=== PATIENT | female | born 1940 | race Caucasian/White ===

== ENCOUNTER 2020-11-05 10:34 | Emergency (ER) | payer MEDICARE, OTHER ==
[~2020-11-05] VITALS: Ht 152.4 cm; Wt 62.1 kg
[2020-11-05 10:44] VITALS: BP 131/72
--- NOTE | 2020-11-05 10:54 | NUR ---
PT AMBULATED TO BED 7.
--- NOTE | 2020-11-05 10:55 | NUR ---
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
[2020-11-05] MEDS ORDERED: HYDROcodone/APAP 5/325 MG 1 TAB TAB PO ONE (11:05)
--- NOTE | 2020-11-05 11:10 | NUR ---
Dr. Hahn with pt for MSE.
[2020-11-05 12:14] VITALS: BP 128/69
--- NOTE | 2020-11-05 12:14 | NUR ---
pt in bed in semi fowlers position. aao x 4. does not appear to be in distress at this time. VSS.
[2020-11-05] MEDS ORDERED: ACET-9527 PO (12:21)
[2020-11-05] MEDS ORDERED: CEPH250C16 PO (12:24)
--- NOTE | 2020-11-05 12:39 | NUR ---
Patient discharged with v/s stable. Written and verbal after care instructions given and explained. Patient alert, oriented and verbalized understanding of instructions. Ambulatory with steady gait. All questions addressed prior to discharge. ID band removed. Patient advised to follow up with PMD. Rx of norco, keflex given. Patient educated on indication of medication including possible reaction and side effects. Opportunity to ask questions provided and answered.
[2020-11-05 13:19] LABS: APPEARANCE,URINE CLEAR (CLEAR); BILIRUBIN,URINE NEGATIVE (NEGATIVE); BLOOD, URINE TRACE-I (NEGATIVE); COLOR,URINE YELLOW (YELLOW); LEUKOCYTE ESTERASE ,URINE TRACE (NEGATIVE); UGLUCOSE NEGATIVE (NEGATIVE)
[2020-11-05 13:48] LABS: NITRITE, URINE POSITIVE (NEGATIVE); RBC,URINE 0-5 /HPF (0-5); WBC,URINE 0-5 /HPF (0-5)
== END 2020-11-05 12:39 | disposition home or self-care (01) ==
LOC: MED 10:34
DX: S20.211A Contusion of right front wall of thorax, initial encounter (principal); N39.0 Urinary tract infection, site not specified; R03.0 Elevated blood-pressure reading, without diagnosis of hypertension; Z79.899 Other long term (current) drug therapy; W07.XXXA Fall from chair, initial encounter; Y93.89 Activity, other specified; Y92.89 Other specified places as the place of occurrence of the external cause; Y99.8 Other external cause status
CPT/HCPCS: 71101; 81001; 99284

== ENCOUNTER 2020-12-23 19:30 | Emergency (ER) | payer MEDICARE, OTHER ==
[~2020-12-23] VITALS: Ht 152.4 cm; Wt 64.9 kg
[~2020-12-23 19:30] MED LIST: ACET-9527 PO; CEPH250C16 PO
[2020-12-23 19:37] VITALS: BP 124/84
--- NOTE | 2020-12-23 19:37 | NUR ---
TO BED AMBULATORY
--- NOTE | 2020-12-23 19:45 | NUR ---
RECEIVED IN BED 7 AFTER OBTAINING UA WITH C/O DIZZINESS SINCE YESTERDAY. 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
--- NOTE | 2020-12-23 20:01 | NUR ---
DR. KENT AT BEDSIDE FOR EXAM
[2020-12-23] MEDS ORDERED: CIPR500T4 PO (20:07)
[2020-12-23 20:30] VITALS: BP 124/84
== END 2020-12-23 20:30 | disposition home or self-care (01) ==
LOC: MED 19:30
DX: N39.0 Urinary tract infection, site not specified (principal); R42 Dizziness and giddiness; E11.9 Type 2 diabetes mellitus without complications; Z90.49 Acquired absence of other specified parts of digestive tract; Z79.899 Other long term (current) drug therapy
CPT/HCPCS: 81002; 99283

== ENCOUNTER 2021-07-28 15:45 | Emergency (ER) | payer MEDICARE, OTHER ==
[~2021-07-28] VITALS: Ht 152.4 cm; Wt 64.9 kg
[~2021-07-28 15:45] MED LIST changes: +CIPR500T4 PO
[2021-07-28 15:54] VITALS: BP 164/79
--- NOTE | 2021-07-28 16:32 | NUR ---
80 Y/O F C/O DIZZINES, NAUSEA AND LOP BP FOR 2 WKS AFTER SHE GOT HER FLU VACINE. JOHN.
--- NOTE | 2021-07-28 16:32 | NUR ---
Carlos valladares in EDM - 07/28/21 at 1921 by [email or web address] 1 Y/O F C/O DIZZINES, NAUSEA AND LOP BP FOR 2 WKS AFTER SHE GOT HER FLU VACINE. PEDROA.
--- NOTE | 2021-07-28 16:40 | NUR ---
DR SCHUMACHER AT BEDSIDE.
--- NOTE | 2021-07-28 16:50 | NUR ---
LAB AT BEDSIDE.
--- NOTE | 2021-07-28 16:57 | NUR ---
EKG AT BEDSIDE.
[2021-07-28 17:00] LABS: BASOPHILS % (AUTO) 0.6 % (0.0-2.0); EOSINOPHILS # (AUTO) 0.1 K/uL (0-0.4); EOSINOPHILS % (AUTO) 1.9 % (0.0-4.0); HEMATOCRIT 36.5 % (36-48); HEMOGLOBIN 12.3 g/dL (12.0-16.0); LYMPHOCYTES # (AUTO) 2.5 K/uL (2.5-16.5); LYMPHOCYTES % (AUTO) 34.4 % (20.5-51.1); MEAN CORPUSCULAR HEMOGLOBIN 29 pg (27-31); MEAN CORPUSCULAR HGB CONC 34 g/dL (33-37); MEAN CORPUSCULAR VOLUME 86.9 fL (80-94); MONOCYTES # (AUTO) 0.7 K/uL (0.8-1.0); MONOCYTES % (AUTO) 9.7 % (1.7-9.3); NEUTROPHILS # (AUTO) 3.8 K/uL (1.8-7.7); NEUTROPHILS % (AUTO) 53.4 % (42.2-75.2); PLATELET COUNT (AUTO) 203 K/uL (140-450); RED BLOOD CELL COUNT(AUTO) 4.19 MIL/uL (4.20-5.40); RED CELL DISTRIBUTION WIDTH 13.8 % (11.6-13.7); WHITE BLOOD COUNT (AUTO) 7.2 K/uL (4.8-10.8)
[2021-07-28 17:00] LABS: APPEARANCE,URINE CLEAR (CLEAR); BILIRUBIN,URINE NEGATIVE (NEGATIVE); BLOOD, URINE 1+ (NEGATIVE); COLOR,URINE YELLOW (YELLOW); LEUKOCYTE ESTERASE ,URINE NEGATIVE (NEGATIVE); NITRITE, URINE NEGATIVE (NEGATIVE); UGLUCOSE NEGATIVE (NEGATIVE)
[2021-07-28 17:26] LABS: RBC,URINE 0-5 /HPF (0-5); WBC,URINE NONE SEEN /HPF (0-5)
[2021-07-28 17:35] LABS: TOTAL BILIRUBIN 0.2 mg/dL (0.0-1.0)
[2021-07-28 17:48] LABS: ALBUMIN 3.6 g/dL (3.4-5.0); ANION GAP 13.6 (8-16); ASPARTATE AMINOTRANSFERASE 18 U/L (15-37); CARBON DIOXIDE 27.5 mmol/L (21-32); CHLORIDE 106 mmol/L (98-107); CREATININE 0.7 mg/dL (0.6-1.3); GLUCOSE 96 mg/dL (74-106); POTASSIUM 4.1 mmol/L (3.5-5.1); SODIUM SERUM 143 mmol/L (136-145); UREA NITROGEN, BLOOD 15 mg/dL (7-18)
--- NOTE | 2021-07-28 18:48 | NUR ---
PATIENT TO CT SCAN.
--- NOTE | 2021-07-28 19:05 | NUR ---
BACK FROM CT.
--- NOTE | 2021-07-28 19:20 | NUR ---
RECIEVED REPORT FROM EVELIA CRESPO.
--- NOTE | 2021-07-28 19:21 | NUR ---
REPORT GIVEN TO NEVA CRESPO.
--- NOTE | 2021-07-28 19:33 | NUR ---
HELPED PT AMBULATE TO RESTROOM.
[2021-07-28] MEDS ORDERED: ACETAMINOPHEN 325 MG TAB PO ONE (19:45)
[2021-07-28] MEDS ORDERED: KETOROLAC 15 MG/ML VIAL IVP ONE (19:45)
[2021-07-28] MEDS ORDERED: KETOROLAC 30 MG/ML VIAL ONE (19:52)
[2021-07-28] MEDS ORDERED: ACET-10509 PO (21:03)
[2021-07-28 21:25] VITALS: BP 158/77
--- NOTE | 2021-07-28 21:25 | NUR ---
Patient discharged with v/s stable. Written and verbal after care instructions given and explained. Patient verbalized understanding. Ambulatory with steady gait. All questions addressed prior to discharge. Advised to follow up with PMD.
--- NOTE | 2021-07-28 21:38 | NUR ---
The patient's care was reviewed and supervised by Erma West RN.
== END 2021-07-28 21:25 | disposition home or self-care (01) ==
LOC: MED 15:45
DX: R51.9 Headache, unspecified (principal); I10 Essential (primary) hypertension; R42 Dizziness and giddiness; E11.9 Type 2 diabetes mellitus without complications; Z79.899 Other long term (current) drug therapy
CPT/HCPCS: 36415; 70450; 70496; 70498; 80053; 81001; 84484; 85025; 93005; 96374; 99285; J1885; Q9967

== ENCOUNTER 2022-09-22 11:56 | Emergency (ER) | payer OTHER ==
[~2022-09-22] VITALS: Ht 147.3 cm; Wt 62.3 kg
[~2022-09-22 11:56] MED LIST changes: +ACET-10509 PO
[2022-09-22 12:25] VITALS: BP 147/60
--- NOTE | 2022-09-22 12:29 | NUR ---
PATIENT PRESENTS TO ED WITH ANXIETY . PT STATES IT FELT WORSE TODAY . DENIES N/V/D; SKIN IS PINK/WARM/DRY; AAOX4 WITH EVEN AND STEADY GAIT; LUNGS CLEAR BL; HR EVEN AND REGULAR; PT DENIES ANY FEVER, CP, SOB, OR COUGH AT THIS TIME; PATIENT STATES PAIN OF 0/10 AT THIS TIME; VSS; PATIENT POSITIONED FOR COMFORT; HOB ELEVATED; BEDRAILS UP X2; BED DOWN. ER MD MADE AWARE OF PT STATUS.
--- NOTE | 2022-09-22 14:00 | NUR ---
PATIENT [place] IN [place], NO S/S OF ACUTE DISTRESS. WILL CONTINUE WITH PLAN OF CARE
[2022-09-22 16:15] LABS: BASOPHILS % (AUTO) 0.4 % (0.0-2.0); EOSINOPHILS # (AUTO) 0.1 K/uL (0-0.4); EOSINOPHILS % (AUTO) 0.9 % (0.0-4.0); HEMATOCRIT 37.9 % (36-48); HEMOGLOBIN 12.8 g/dL (12.0-16.0); LYMPHOCYTES # (AUTO) 1.8 K/uL (2.5-16.5); LYMPHOCYTES % (AUTO) 19.9 % (20.5-51.1); MEAN CORPUSCULAR HEMOGLOBIN 29 pg (27-31); MEAN CORPUSCULAR HGB CONC 34 g/dL (33-37); MEAN CORPUSCULAR VOLUME 86.3 fL (80-94); MONOCYTES # (AUTO) 0.7 K/uL (0.8-1.0); MONOCYTES % (AUTO) 7.7 % (1.7-9.3); NEUTROPHILS # (AUTO) 6.5 K/uL (1.8-7.7); NEUTROPHILS % (AUTO) 71.1 % (42.2-75.2); PLATELET COUNT (AUTO) 215 K/uL (140-450); RED BLOOD CELL COUNT(AUTO) 4.39 MIL/uL (4.20-5.40); RED CELL DISTRIBUTION WIDTH 13.9 % (11.6-13.7); WHITE BLOOD COUNT (AUTO) 9.1 K/uL (4.8-10.8)
[2022-09-22 16:35] LABS: ALBUMIN 3.8 g/dL (3.4-5.0); ANION GAP 9.6 (8-16); ASPARTATE AMINOTRANSFERASE 18 U/L (15-37); CARBON DIOXIDE 31.7 mmol/L (21-32); CHLORIDE 101 mmol/L (98-107); CREATININE 0.8 mg/dL (0.6-1.3); GLUCOSE 86 mg/dL (74-106); POTASSIUM 4.3 mmol/L (3.5-5.1); SODIUM SERUM 138 mmol/L (136-145); TOTAL BILIRUBIN 0.3 mg/dL (0.0-1.0); UREA NITROGEN, BLOOD 15 mg/dL (7-18)
[2022-09-22 17:00] VITALS: BP 139/65
== END 2022-09-22 17:00 | disposition home or self-care (01) ==
LOC: MED 11:56
DX: F41.9 Anxiety disorder, unspecified (principal); R53.1 Weakness; E11.9 Type 2 diabetes mellitus without complications; I10 Essential (primary) hypertension; Z79.4 Long term (current) use of insulin; Z79.899 Other long term (current) drug therapy
CPT/HCPCS: 36415; 71045; 80053; 84484; 85025; 99285